=== PATIENT | female | born 1980 | race Caucasian/White ===

== ENCOUNTER → 2016-06-18 | Outpatient (CLI) | payer BC ==
[~2016-06-18] MED LIST: BCPILLS PO; MULT-240 PO; PRENTAB26 PO
[2016-06-18 19:16] LABS: URINE APPEARANCE CLEAR (CLEAR); URINE BILIRUBIN NEG (NEG); URINE COLOR YELLOW; URINE NITRITE NEG (NEG); URINE PH 5.5 (4.5-7.5); URINE SPECIFIC GRAVITY 1.016 (1.000-1.030); UROBILINOGEN NEG (NEG)
[2016-06-18 19:22] LABS: MANUAL MICROSCOPIC REQUIRED? NO; REVIEW REQ? NO
== END | disposition home or self-care (01) ==
LOC: C.LABSPEC 18:02
PROVIDERS: ATTEND Obstetrics & Gynecology
DX: Z34.81 Encounter for supervision of other normal pregnancy, first trimester (principal)

== ENCOUNTER → 2016-06-25 | Outpatient (CLI) | payer BC ==
[2016-06-29 23:54] LABS: CHLAMYDIA TRACH RNA*** NOT DETECTED (NOT DETECTED); GC (NEIS GONORRHOEAE)RNA** NOT DETECTED (NOT DETECTED)
== END | disposition home or self-care (01) ==
LOC: C.LABSPEC 17:41
PROVIDERS: ATTEND Obstetrics & Gynecology
DX: Z34.81 Encounter for supervision of other normal pregnancy, first trimester (principal)

== ENCOUNTER 2016-07-16 16:57 | Emergency (ER) | payer BC ==
[~2016-07-16] VITALS: Ht 170.2 cm; Wt 69.5 kg
[~2016-07-16 16:57] MED LIST changes: -PRENTAB26 PO
[2016-07-16 17:00] VITALS: TEMP 36.8; Ht 170.2 cm; Wt 69.5 kg
--- NOTE | 2016-07-16 17:17 | EMERGENCY ROOM VISIT NOTE ---
History Report prepared by Aletha: Vamsi Ritter Under the Supervision of: Dr. Jose Machado M.D. 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 The patient is 11 weeks . She states that she has been experiencing brown discharge over the past [address] Vogt ([facility] [address]) who told the patient to come in to the ED if this discharge becomes bloody. The patient has a history of a miscarriage 2 years ago. She denies abdominal pain/cramping, or any additional associated symptoms. [id number]. 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 Please see Additional Medical History Sheet. Past Medical & Surgical Medical Problems: (1) Miscarriage Surgical Problems: (1) ACL tear Family History FH: HTN (hypertension) FH: diabetes mellitus FH: heart disease Social History Smoking Status: Never Smoker Alcohol Use: occasionally Drug Use: none Housing Status: lives with significant other Occupation Status: employed Current/Historical Medications Scheduled Multivit/Min/Iron/Fol Ac/Pren ( Vitamin), 1 TAB PO DAILY Allergies Coded Allergies: No Known Allergies (Unverified , 07/16/16) Physical Exam Vital Signs Date Time Temp Pulse Resp B/P Pulse Ox O2 Delivery O2 Flow Rate FiO2 07/16/16 21:35 95 16 134/88 97 Room Air 07/16/16 20:26 91 18 136/76 97 Room Air 07/16/16 18:56 86 16 131/80 98 Room Air 07/16/16 17:44 84 135/79 95 154/93 91 147/112 07/16/16 17:00 36.8 123 18 165/92 94 Room Air Physical Exam GENERAL: Patient awake, alert, oriented x 3. Patient follows commands. Patient does not appear toxic. Patient is adequately hydrated and well- nourished. SKIN: No erythema, pallor, cyanosis or rash HEENT: Normal head, pupils equal, reactive to light and accommodation. LUNGS: Clear to auscultation. No wheezes, no rales, no rhonchi. HEART: No murmurs. No gallops. No rubs ABDOMEN: No masses, no rebound, no hepatomegaly or splenomegaly. PELVIC: Less than 5 cc, dark black blood. Os is closed, Uterine enlarged consistent with 11 weeks . Adnexa nontender. EXTREMITIES: No signs of trauma or infection. NEUROLOGIC: Cranial nerves II-XII within normal limits. No gross motor sensory function deficits. Medical Decision & Procedures ER Provider Diagnostic Interpretation: Ultrasound results are interpretations by the radiologist and per my review. Limited ultrasound <14 WKS SINGLE CLINICAL HISTORY: vag bleeding 11 weeks bleeding TECHNIQUE: Ultrasound COMPARISON STUDY: None FINDINGS: Intrauterine gestational sac at the level of the mid uterine body. heartbeat could not be confirmed. Estimated gestational age is approximate 7 weeks. IMPRESSION: Intrauterine gestational sac with a pole. A heart rate is not confirmed. Follow-up ultrasound is recommended in 7-10 days to confirm viability or as clinically indicated. Electronically signed by: Ambrosio Vega M.D. 07/16/2016 7:41 PM Dictated Date/Time: 07/16/2016 7:39 PM Laboratory Results 07/16/16 17:20 Test 07/16/16 17:20 Red Blood Count 5.03 M/uL (4.2-5.4) Mean Corpuscular Volume 89.1 fL (80-100) Mean Corpuscular Hemoglobin 29.0 pg (25-34) Mean Corpuscular Hemoglobin Concent 32.6 g/dl (32-36) RDW Standard Deviation 38.6 fL (36.4-46.3) RDW Coefficient of Variation 12.1 % (11.5-14.5) Mean Platelet Volume 10.6 fL (7.4-10.4) Human Chorionic Gonadotropin, Quant 4975 mIU/mL Laboratory results as stated above per my review. ED Course 1704: Past medical records reviewed. The patient was evaluated in room A3. A complete history and physical examination was performed. 1757: Performed pelvic exam with female nurse in room. 2109: Discussed the patient's case with Dr. Montero ([facility]). She is agreeable with the discussed treatment plan. 2121: I updated the patient of today's results. I discussed today's findings with the patient. She is tearful, but she verbalized agreement of the treatment plan. She was discharged home. Medical Decision Nurses notes reviewed. Medical history sheet reviewed. Differential diagnosis includes but is not limited to: Intrauterine , threatened ab, inevitable ab, ectopic . The ultrasound reveals no heart tones and size is small for stated dates. Quantitative beta-hCG is less than 5000 and should be much higher. Most likely the patient has an incomplete AB. Patient is Rh+. She is currently not bleeding and vital signs are stable. I discussed care with Dr. Montero. Patient is to follow-up in their office tomorrow at 9:30. Patient was given home care instructions. Consults Time Called: 2099 Consulting Physician: Dr. Montero ([facility]) Returned Call: [phone] Discussed the patient's case with Dr. Montero ([facility]). She is agreeable with the discussed treatment plan. Impression Primary Impression: Incomplete Scribe Attestation The scribe's documentation has been prepared under my direction and personally reviewed by me in its entirety. I confirm that the note above accurately reflects all work, treatment, procedures, and medical decision making performed by me. Departure Information Dispostion Home / Self-Care Referrals Sabrina Vogt MD (PCP) Forms HOME CARE DOCUMENTATION FORM, IMPORTANT VISIT INFORMATION, WORK / SCHOOL INSTRUCTIONS Patient Instructions My [facility] Additional Instructions REST Nothing by mouth after midnight Follow-up with obstetrics tomorrow at 9:30. Return here sooner if you have heavy bleeding or pass any tissue.
[2016-07-16] MEDS ORDERED: PRENTAB26 PO (17:30)
[2016-07-16 17:34] LABS: HEMATOCRIT 44.8 % (37-47); MEAN CELL VOLUME 89.1 fL (80-100); MEAN CORPUSCULAR HGB CONC 32.6 g/dl (32-36); MEAN PLATELET VOLUME 10.6 fL (7.4-10.4); PLATELET COUNT 284 K/uL (130-400); RED BLOOD COUNT 5.03 M/uL (4.2-5.4); WHITE BLOOD COUNT 8.34 K/uL (4.8-10.8)
--- NOTE | 2016-07-16 19:43 | DIAGNOSTIC IMAGING REPORT ---
Limited ultrasound <14 WKS SINGLE CLINICAL HISTORY: vag bleeding 11 weeks bleeding TECHNIQUE: Ultrasound COMPARISON STUDY: None FINDINGS: Intrauterine gestational sac at the level of the mid uterine body. heartbeat could not be confirmed. Estimated gestational age is approximate 7 weeks. IMPRESSION: Intrauterine gestational sac with a pole. A heart rate is not confirmed. Follow-up ultrasound is recommended in 7-10 days to confirm viability or as clinically indicated. Electronically signed by: Ambrosio Vega M.D. 07/16/2016 7:41 PM Dictated Date/Time: 07/16/2016 7:39 PM
[2016-07-16 21:35] VITALS: BP 134/88; PULSE 95; O2SAT 97
[2016-07-17] MEDS ORDERED: SODIUM CHLORIDE 0.9% 1000ML 1,000 ML IV SCH (12:30)
[2016-07-17] MEDS ORDERED: DOXYCYCLINE HYCLATE 100 MG CAP PO STA (12:30)
== END 2016-07-16 21:42 | disposition home or self-care (01) ==
LOC: C.EDB 16:59 → C.EDA 21:42
DX: O03.4 Incomplete spontaneous abortion without complication (principal); Z82.49 Family history of ischemic heart disease and other diseases of the circulatory system; Z83.3 Family history of diabetes mellitus

== ENCOUNTER 2016-07-17 10:04 | Day surgery (SDC) | payer BC ==
[~2016-07-17] VITALS: Ht 170.2 cm; Wt 68.2 kg
[~2016-07-17 10:04] MED LIST changes: -BCPILLS PO; -MULT-240 PO; +PRENTAB26 PO
[2016-07-17 10:18] VITALS: Ht 170.2 cm; Wt 68.2 kg
[2016-07-17] MEDS ORDERED: MEPERIDINE HCL 25 MG/ML CARP IV PRN (10:30)
[2016-07-17] MEDS ORDERED: HYDROmorphone INJ 0.5 MG/0.5 ML SYR IV PRN (10:30)
[2016-07-17] MEDS ORDERED: LABETALOL HCL IV 5 MG/ML 20ML IV PRN (10:30)
[2016-07-17] MEDS ORDERED: ONDANSETRON INJ 2 MG/ML 2 ML VIAL IV PRN ×2 (10:30→14:15)
[2016-07-17] MEDS ORDERED: EpHEDrine SULFATE INJ 50 MG/ML AMP IV PRN (10:30)
[2016-07-17] MEDS ORDERED: ATROPINE SULFATE 0.1 MG/ML 5ML SYR IV PRN (10:30)
[2016-07-17] MEDS ORDERED: FENTANYL CITRATE INJ 50 MCG/1 ML 2 ML VIAL IV PRN (10:30)
[2016-07-17 11:23] VITALS: BP 108/57; PULSE 73; TEMP 36.8; O2SAT 100
[2016-07-17] MEDS ORDERED: MIDAZOLAM HCL 1 MG/ML 2ML VIAL ONE (11:43)
[2016-07-17] MEDS ORDERED: FENTANYL CITRATE INJ 50 MCG/1 ML 2 ML VIAL ONE (11:43)
--- NOTE | 2016-07-17 12:52 | HISTORY & PHYSICAL EXAMINATION ---
DATE OF ADMISSION: 07/17/2016 REASON FOR ADMISSION: D\T\E for missed . HISTORY OF PRESENT ILLNESS: This is a 36-year-old G2, P0-0-1-0 with a that should have been 11 weeks' by dates; however, she was seen in the ER last night and found to have a miscarriage measuring 7 weeks with no heart tones identified. The patient has additionally been undergoing some light bleeding per vagina, which was initially brown and then became bright red yesterday. Currently, she continues to have light brown spotting and she has no cramping or other complaints. REVIEW OF SYSTEMS: Review of systems x10 is negative except as stated above. PAST MEDICAL HISTORY: Prior miscarriage. PAST SURGICAL HISTORY: ACL repair. SOCIAL HISTORY: Single monogamous female. 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 Nonsmoker, nondrug user, and lives at home with her significant other. FAMILY HISTORY: Notable for hypertension, diabetes, and heart disease. No congenital defects and no history of recurrent abortions. MEDICATIONS: vitamin. ALLERGIES: None known. PHYSICAL EXAMINATION: VITAL SIGNS: Within the past 24 hours as measured in the Emergency Department, she has a temperature of 36.8, pulse 95, respirations 16, BP 134/88, and pulse ox 97% on room air. GENERAL: Here in preop, the patient is awake, alert and oriented x3. She is in no acute distress. SKIN: Normal without rash. HEENT: Normal. LUNGS: Clear to auscultation bilaterally. HEART: Shows no murmurs, rubs or gallops. ABDOMEN: Soft and nontender. PELVIC: Deferred at this time; however, per the Emergency Department last night, cervix was closed. Uterus was enlarged. The adnexa were nontender and there was a small amount of dark black blood in the vagina. EXTREMITIES: Normal today. NEUROLOGIC: Grossly within normal limits. DIAGNOSTIC STUDIES: Ultrasound performed in the ER yesterday was reviewed by myself, including the images as well as the report and the images show a 7-week pole with a nonexistent heart tone. Given that the patient was ultrasounded in the office several weeks ago and found to have a viable valencia intrauterine and should have been 11 weeks today, the finding of a 7-week crown rump length with no obvious heart tones is diagnostic of a miscarriage at this time. LABORATORY DATA: Review of labs shows normal platelets of 284 and preop hemoglobin of 14.6. The patient is Rh positive. ASSESSMENT AND PLAN: This is a 36-year-old G2, P0-0-2-0, who presents with a missed at 7 weeks' gestational age size by pole. She has been counseled on her options including expectant management, Cytotec and D\T\E and the patient prefers a D\T\E. She presented for that today and is currently in same-day surgery, where I met her to confirm her consent. Additionally, I discussed with the patient that she has a prior second trimester spontaneous as well as now a first trimester with no successful pregnancies. I offered her Anora chromosome analysis on the material and she is very much agreeable to that. Consent was signed and the patient was informed that I do not know what her out of pocket cost for this may be and she has declined to contact her insurance company prior to the procedure and she wishes to have the testing done regardless of the cost. Additionally, she inquired about testing for blood clotting disorders and other causes of recurrent miscarriage, which I will order while she is here in the hospital and if possible, they may be drawn while she is anesthetized for the procedure or at least before she leaves from the PACU. GREG
[2016-07-17] MEDS ORDERED: PROPOFOL IV EMULSION 10 MG/ML 20 ML VIAL IV ONE (13:24)
[2016-07-17] MEDS ORDERED: DEXAMETHASONE SOD INJ 4 MG/ML VIAL ONE (13:24)
[2016-07-17] MEDS ORDERED: LIDOCAINE HCL 2% 2 ML VIAL (20MG/ML) ONE (13:24)
[2016-07-17] MEDS ORDERED: KETOROLAC TROMETHAMINE 30 MG/ML VIAL ONE (13:24)
[2016-07-17] MEDS ORDERED: ONDANSETRON INJ 2 MG/ML 2 ML VIAL ONE (13:24)
[2016-07-17] MEDS ORDERED: SODIUM CHLORIDE 0.9% 1000ML 1,000 ML IV SCH (14:04)
--- NOTE | 2016-07-17 14:05 | Discharge Instructions ---
Discharge Instructions Date of Service July 17, 2016. Visit Reason for Visit: Missed Discharge Discharge Diagnosis / Problem: missed Discharge Goals Goal(s): Specific goals Activity Recommendations Activity Limitations: per Instructions/Follow-up section Anesthesia . Post Anesthesia Instructions: If you have had General Anesthesia or IV Sedation: * Do not drive today. * Resume driving when surgeon permits. * Do not make important decisions or sign legal documents today. * Call surgeon for: 1. Temperature elevations greater than 101 degrees F. 2. Uncontrollable pain. 3. Excessive bleeding. 4. Persistent nausea and vomiting. 5. Medication intolerance (nausea, vomiting or rash). * For nausea and vomiting use only clear liquids such as: tea, soda, bouillon until nausea subsides, then gradually increase diet as tolerated. * If you have any concerns or questions, call your surgeon's office. If physician is unavailable and it is an emergency, call 911 or go to the nearest emergency room. . Instructions / Follow-Up Instructions / Follow-Up ACTIVITY RECOMMENDATIONS: * Avoid tampons, douching, hot tubs, pools, and intercourse until bleeding has stopped. * May shower as usual. * No strenuous activity for 24-48 hours. After 24-48 hours, you may do anything you feel like doing (driving and sports are okay). SPECIAL CARE INSTRUCTIONS: Special Diet: * Mild nausea may occur in the immediate post-operative period. * Take clear liquids such as tea, cola or bouillon until all nausea has subsided; you may then resume your normal diet. Special Care: * Light bleeding and vaginal spotting can last from a few days to 3-4 weeks. Call your doctor if bleeding becomes heavier than the heaviest part of your period. * Check your temperature twice a day for one week. If it goes above 100.4 degrees Fahrenheit (38.0 Celsius), notify your doctor. * Call your doctor's office for an appointment for 6 weeks after your surgery. FOLLOW-UP VISIT: Call your doctor's office for an appointment for 6 weeks after your surgery. Diet Recommendations Recommended Home Diet: resume previous diet Procedures Procedures Performed: Dilation and Evacuation with Anora(genetic) Testing Pending Studies Studies pending at discharge: no Medical Emergencies . Who to Call and When: Medical Emergencies: If at any time you feel your situation is an emergency, please call 911 immediately. . Non-Emergent Contact Non-Emergency issues call your: Primary Care Provider . . "Provider Documentation" section prepared by Sabrina Vogt. .
[2016-07-17] MEDS ORDERED: OXYCODONE/ACETAMINOPHEN 5-325 TAB PO PRN ×2 (14:15)
[2016-07-17] MEDS ORDERED: PROMETHAZINE HCL INJ 25 MG in SODIUM CHLORIDE 0.9% 50ML 50 ML IV PRN (14:15)
[2016-07-17] MEDS ORDERED: IBUPROFEN 600 MG TAB PO PRN (14:15)
[2016-07-17] MEDS ORDERED: KETOROLAC TROMETHAMINE 30 MG/ML VIAL IV. PRN (14:15)
[2016-07-17 14:20] VITALS: BP 107/55; PULSE 54; TEMP 36.7; O2SAT 100
[2016-07-17] MEDS ORDERED: DOXYCYCLINE HYCLATE 100 MG CAP PO STA (14:30)
--- NOTE | 2016-07-17 14:39 | OPERATIVE REPORT ---
DATE OF OPERATION: 07/17/2016 PREOPERATIVE DIAGNOSIS: Missed . POSTOPERATIVE DIAGNOSIS: Same. PROCEDURE: D\T\E with Anora testing. SURGEON: Dr. Vogt. PROFESSOR OF MARKETING: None. ESTIMATED BLOOD LOSS: 100 mL. FINDINGS: Uterus sounded to 11 cm preop and 8 cm postop. Material consistent with POCs retrieved. SPECIMENS: Products of conception, which were divided into a specimen for our pathology lab and a specimen for Anora genetic testing. COMPLICATIONS: None. DISPOSITION: Stable to the recovery room. DESCRIPTION: Bessie was placed on the table in the dorsal lithotomy position using candy-cane stirrups, prepped and draped in standard sterile fashion and a hard time-out was taken. The bladder was drained of urine using straight catheterization. Specula were then introduced to the vagina and the anterior lip of the cervix was grasped using a single-tooth tenaculum. The cervix was sounded and uterine sound depth was 11 cm. The cervix was then serially dilated to allow passage of an 8 mm rigid curet. The curette was introduced to the fundus and suction hose was then connected and activated. Through several passes, material consistent with products of conception was retrieved. The suction curet was removed and a brief sharp curettage was carried out to feel good cry on all 4 dunn. The suction was then introduced one final time and through one last pass retrieved all the remaining clot and debris. All instruments were then removed from the patient. Of note, the surgical specimen was divided by myself on the back table. Approximately 50% of the specimen was sent in formalin to or pathology lab and the other 50% of the specimen was sent as a fresh product to Anora genetic testing to which the patient had agreed before procedure was undertaken. I attest to the content of the Intraoperative Record and any orders documented therein. Any exceptio ns are noted below.
--- NOTE | 2016-07-17 14:46 | Anesthesiology Progress Note ---
Anesthesia Post Op Note Date & Time July 17, 2016 at 14:45 Vital Signs Pain Intensity: 2 Vital Signs Past 12 Hours Date Time Temp Pulse Resp B/P Pulse Ox O2 Delivery O2 Flow Rate FiO2 07/17/16 14:10 36.6 59 16 102/72 99 Room Air 07/17/16 14:00 73 16 101/69 99 Room Air 07/17/16 13:50 65 16 107/68 100 Mask 10 07/17/16 13:40 67 16 116/62 100 Mask 10 07/17/16 13:34 37 72 16 130/78 99 Mask 10 07/17/16 11:23 36.8 73 16 108/57 100 Room Air Notes Mental Status: alert / awake / arousable, participated in evaluation Pt Amnestic to Procedure: Yes Nausea / Vomiting: adequately controlled Pain: adequately controlled Airway Patency, RR, SpO2: stable & adequate BP & HR: stable & adequate Hydration State: stable & adequate Anesthetic Complications: no major complications apparent
[2016-07-17 14:55] VITALS: BP 116/59; PULSE 64; O2SAT 100
[2016-07-17 15:20] VITALS: BP 116/68; PULSE 68; TEMP 36.7; O2SAT 100
[2016-07-22 17:31] LABS: B2 GLYCOPROTEIN IGA <9 SAU (<=20); B2 GLYCOPROTEIN IGG <9 SGU (<=20); B2 GLYCOPROTEIN IGM <9 SMU (<=20); DRVVT MIX INTERPRETAION Not Indicated; HSV1 AB IGM Negative (Negative); HSV2 AB IGM Negative (Negative); LAC PTT SCREEN 37 sec (<=40); MICROSOMAL AB 689 IU/ML (<9); PHOSPHATIDYLSERINE IGA <20 U/mL (<20); PHOSPHATIDYLSERINE IGG <10 U/mL (<10); PHOSPHATIDYLSERINE IGM <25 U/mL (<25); TOXOPLASMA GONDII IGM Equivocal (Negative)
== END 2016-07-17 15:35 | disposition home or self-care (01) ==
LOC: C.OR 10:04 → C.ACU 15:35
PROVIDERS: ATTEND Obstetrics & Gynecology
DX: O02.1 Missed abortion (principal); Z82.49 Family history of ischemic heart disease and other diseases of the circulatory system; Z83.3 Family history of diabetes mellitus

== ENCOUNTER → 2017-02-23 | Outpatient (CLI) | payer BC ==
--- NOTE | 2017-02-23 11:28 | DIAGNOSTIC IMAGING REPORT ---
HYSTEROSALPINGOGRAM CLINICAL HISTORY: FERTILITY TESTING *DR ARANDA DOING* COMPARISON STUDY: No previous studies for comparison. FINDINGS: 36 seconds of fluoroscopic time was utilized. 5 fluoroscopic spot images were acquired. Both fallopian tubes filled a normal fashion. There is free spillage bilaterally. IMPRESSION: Both fallopian tubes were patent. Electronically signed by: Meng Kinsey M.D. 02/23/2017 11:27 AM Dictated Date/Time: 02/23/2017 11:26 AM
--- NOTE | 2017-02-23 11:32 | OPERATIVE REPORT ---
DATE OF OPERATION: 02/23/2017 DATE OF PROCEDURE: 02/23/2017 The patient is a 36-year-old 2, para 0-0-2-0 white female who presents for hysterosalpingogram as part of her workup for female infertility. After the patient had been identified and her questions answered about the procedure a speculum was placed in the vagina. The cervix was then cleansed with Betadine. The anterior lip of the cervix was then grasped with a single tooth tenaculum. Nice's cannula was inserted into the cervical canal. The dye was then instilled into the uterus without difficulty. The patient tolerated the procedure well. I attest to the content of the Intraoperative Record and any orders documented therein. Any exception s are noted below.
== END | disposition home or self-care (01) ==
LOC: C.RAD 10:45
PROVIDERS: ATTEND Obstetrics & Gynecology
DX: Z31.41 Encounter for fertility testing (principal)

== ENCOUNTER → 2017-06-28 | Outpatient (CLI) | payer OTHER | END | disposition home or self-care (01) | LOC: C.LAB1850 07:53 | PROVIDERS: ATTEND Specialist | DX: Z31.41 Encounter for fertility testing (principal) ==

== ENCOUNTER → 2017-11-01 | Outpatient (CLI) | payer OTHER | END | disposition home or self-care (01) | LOC: C.LAB1850 08:52 | PROVIDERS: ATTEND Specialist | DX: Z31.41 Encounter for fertility testing (principal) ==

== ENCOUNTER 2018-11-18 12:27 | Inpatient (IN) ==
[2018-11-18] MEDS ORDERED: OXYTOCIN 30 UNITS/500 ML BAG IV PRN (12:48)
[2018-11-18] MEDS ORDERED: NIFEdipine 10 MG CAP PO STA (12:48)
[2018-11-18] MEDS ORDERED: NIFEdipine 10 MG CAP ONE (12:54)
--- NOTE | 2018-11-18 13:07 | History & Physical Report ---
Date of Service November 18, 2018 Assessment & Plan (1) Elevated blood pressure affecting in third trimester, antepartum: (2) with 36 completed weeks gestation: Fetus category one. Will acutely treat blood pressure with oral nifedipine, start iv, get labs. Given these levels of blood pressure, has either severe GTHN or severe PET, despite the fact that the pressure were not obtained 4 hours apart. This would mean she had an indication for induction of labor at this gestational age. Other than bp, the patient has no s/s of pet. Will continue to monitor closely. Briefly explained the situation to the patient and her SO and will continue to follow and labs and evaluation return. GBS unknown--collected in the office and sent. History of Present Illness Chief Complaint: elevated blood pressure at 36 weeks Primary Care Provider: NO PCP Patient is a with iup at 36 2/7 weeks who presented for her regular weekly visit at the office today. Her initial blood pressure was noted to by 160/110 with a repeat of 158/[address] Swanson. She had a beautifully reactive nst in the office and was sent over here for evaluation. Patient notes she has overall felt well with no particular issues. She notes no silvestre. She notes some occasional dark spots in her vision with turning of her head. She notes mild sob, but had attributed that to . No cp/n/v. No increased swelling. the up to this point has been uncomplicated. Has controlled hypothyroidism. Blood pressure on arrival was 174/110, with repeat 169/104. Allergies Allergy/AdvReac Type Severity Reaction Status Date / Time sulfadiazine Allergy Verified 11/18/18 11:19 Home Medications Home Medications Medication Instructions Recorded Confirmed Type PNV cmb#95-ferrous fumarate-FA 1 tab PO DAILY 08/16/18 11/18/18 History [] levothyroxine 75 mcg PO DAILY 08/16/18 11/18/18 History Patient History Medical History Miscarriage Knee effusion, right (Acute) Strain of right gastrocnemius muscle (Acute) Meliton's thyroiditis Hypothyroidism Encounter for other specified screening Encounter for supervision of normal first , unspecified trimester Missed UTI (urinary tract infection) Varicella Surgical History H/O oral surgery S/P dilation and curettage S/P knee surgery Family History Grandfather Colorectal cancer Father Cardiac disorder Diabetes Myocardial infarction Brother Hypertension Aunt Breast cancer Mother Osteoporosis Thyroid disease Other No pertinent family history in first degree relatives Social History Preferred Language: Cameroonian marital status: Current Living Situation: Spouse current occupational status: employed Feels Safe at Home: Yes Safety Concerns: Feels Safe At This Time Smoking Status: Never smoker Second Hand Exposure: No ; Hx Alcohol Use: No Hx Substance Use: No Dental Care, Regularly: Yes Physical Activity Frequency: 3-4 Times per Week OB History g1--07/27, sab g2--07/29, blighted ovum g3--12/29, sab hx of IVF with Keyshawn Gomez, unsuccessful x2 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 2 hx of IVF no stds, no abnl paps Review of Systems All systems reviewed & are unremarkable except as noted in HPI & below Physical Exam Constitutional: WD/WN, vitals as above Respiratory: normal respiratory effort, lungs clear to auscultation Cardiovascular: RRR, no murmur, no edema Extremities: no calf tenderness, no pedal edema and no edema DTRs +2/2, no clonus Gastrointestinal (Abdomen): soft, nt, nd , no ruq tenderness noted Psychiatric: A+Ox3, euthymic affect Genitourinary: cx--deferred at this time toco--none efm--125 wtih mod variability, accels present, no decels Results & Data Vital Signs (Past 12 Hours) Vital Signs Pulse BP 11/18/18 12:49 86 169/104 H 11/18/18 12:39 100 H 174/110 H Code Status & VTE Plan VTE Prophylaxis Plan VTE Prophylaxis will be ordered: No
[2018-11-18 13:10] LABS: Hematocrit (blood only) 39.1 % (37-47); Hemoglobin 13.8 g/dL (12.0-16.0); Mean Corpuscular Volume 89.7 fL (80-100); Mean Platelet Volume 12.9 fL (7.4-10.4); Platelet Count 187 K/uL (130-400); RDW Coefficient of Variation 13.1 % (11.5-14.5); RDW Standard Deviation 42.9 fL (36.4-46.3); Red Blood Count 4.36 M/uL (4.2-5.4); White Blood Count 11.12 K/uL (4.8-10.8)
[2018-11-18 13:21] LABS: Mean Corpuscular Hgb Conc 35.3 g/dL (32-36)
[2018-11-18 13:28] LABS: Albumin Level 2.7 gm/dl (3.4-5.0); Calcium 9.9 mg/dl (8.5-10.1); Creatinine Clr Calc Pharmacy 94.6 ml/min; Est GFR (Non-African American) 84.5
[2018-11-18 13:30] LABS: Albumin Globulin Ratio 0.6 (0.9-2); Bilirubin,Total 0.3 mg/dl (0.2-1); Globulin 4.3 gm/dl (2.5-4.0)
[2018-11-18] MEDS ORDERED: LABETALOL HCL IV 5 MG/ML 20ML IV STA ×4 (13:31→18:49)
[2018-11-18] MEDS ORDERED: MAGNESIUM SULFATE 4GM / WTR 100 ML BAG IV ONE ×2 (13:31→13:39)
[2018-11-18] MEDS ORDERED: LABETALOL HCL IV 5 MG/ML 20ML IV ONE (13:31)
[2018-11-18] MEDS ORDERED: MAGNESIUM SULFATE 40GM / WTR 1,000 ML BAG IV ONE (13:34)
--- NOTE | 2018-11-18 13:51 | Communication Note ---
Date of Service: November 18, 2018 Labs are all nl, although supervisor/port director is 0.88. Pressures are still elevated and will be treating with iv labetolol. Continues to be asymptomatic, fetus category one. Discussed that she has severe pet/ghtn with severe feature--bp. Explained the need for induction, need for mag for seizure prophylaxis. risk to the baby from pet outweighed by risk to baby of delivery. Discussed that if baby did not breathe well, may need to be transferred, expressed understanding. will give first dose of steroids. Questions asked and answered. When we get her out of exam room , will check cervix and make plan for induction of labor.
[2018-11-18] MEDS: LACTATED RINGER'S 1,000 ML IV PRN (14:00)
[2018-11-18] MEDS ORDERED: BETAMETH SOD PHOS/ACETATE IA 6 MG/ML IM ONE (14:16)
[2018-11-18] MEDS: MAGNESIUM SULFATE / WTR 40 GM/1,000 ML BAG IV SCH ×2 (15:10→23:10)
[2018-11-18 15:37] LABS: Creatinine Urine Random 28.5 mg/dl; Protein Creatinine Ratio Urine 0.4 (0-0.2); Total Protein Urine Random 11.7 mg/dl (0-11.9)
--- NOTE | 2018-11-18 16:06 | Labor Progress Brief Note ---
Date of Service November 18, 2018 Subjective Continues to be asymptomatic Assessment & Plan (1) Elevated blood pressure affecting in third trimester, antepartum: Discussed options for starting induction as she is in need of cervical ripening. Discussed neal/pit and cytotec. r/b/se discussed and going with the former. Pressures were doing better until I manipulated her. anticipate going back down with rest. Fetus category one. Currently on mag at 2 gm per hour. Will start pcn when starts to labor. Patient originally wanted an unmedicated labor and nonintervential labor experience. Discussed this. Will take pain management as it comes. epidural on demand. start pit 03/15. Patient and her so express understanding of all that is happening. Physical Exam Constitutional: WD/WN, vitals as above Genitourinary: Patient verbally consents to neal and pit cx--/-2 sterile speculum placed. cx visualized. Foely threaded through cervix without difficulty. Balloon filled with 30cc of sterile water. Fixed to her left thigh. Tolerated well. Some slight bleeding toco--desmond efm--125 with mod variability, accels to 150s, no decels Results & Data Vital Signs (Past 12 Hours) Vital Signs Temp Pulse Resp BP Pulse Ox 11/18/18 15:58 88 177/89 H 11/18/18 15:55 99 H 99 11/18/18 15:50 104 H 99 11/18/18 15:42 96 H 99 11/18/18 15:41 92 H 171/98 H 11/18/18 15:37 90 170/103 H 98 11/18/18 15:32 91 H 97 11/18/18 15:31 85 142/87 H 11/18/18 15:27 90 98 11/18/18 15:26 91 H 145/102 H 11/18/18 15:22 90 98 11/18/18 15:20 90 149/95 H 11/18/18 15:18 86 144/95 H 11/18/18 15:17 88 99 11/18/18 15:12 92 H 98 11/18/18 15:11 93 H 150/83 H 11/18/18 15:07 88 99 11/18/18 15:06 88 124/104 H 11/18/18 14:58 89 136/96 11/18/18 14:42 90 158/94 H 11/18/18 14:37 87 162/91 H 11/18/18 14:32 88 159/90 H 11/18/18 14:27 91 H 164/93 H 11/18/18 14:23 92 H 155/89 H 11/18/18 14:17 88 155/90 H 11/18/18 14:12 88 161/88 H 11/18/18 14:07 90 168/96 H 11/18/18 14:02 98 H 171/99 H 11/18/18 13:58 88 161/92 H 11/18/18 13:57 85 164/90 H 11/18/18 13:55 18 11/18/18 13:52 83 175/93 H 11/18/18 13:41 94 H 174/113 H 11/18/18 13:30 93 H 176/111 H 11/18/18 13:17 95 H 166/101 H 11/18/18 13:08 91 H 177/105 H 11/18/18 12:49 37.2 C 86 18 169/104 H 11/18/18 12:46 37.2 C 18 11/18/18 12:39 100 H 174/110 H
[2018-11-18] MEDS ORDERED: PENICILLIN G POTASSIUM 3 MU in DEXTROSE 5% 100 ML IV PRN (16:12)
[2018-11-18] MEDS ORDERED: PENICILLIN G POTASSIUM 6 MU in DEXTROSE 5% 250 ML IV STA (16:12)
[2018-11-18] MEDS: OXYTOCIN 30 UNITS/500 ML BAG IV PRN ×2 (16:40→23:11)
--- NOTE | 2018-11-18 18:58 | Labor Progress Brief Note ---
Date of Service November 18, 2018 Subjective Patient resting comfortably in bed. Notes a very mild silvestre and some cramping Assessment & Plan (1) Elevated blood pressure affecting in third trimester, antepartum: Patient having somewhat labile bp. Has been treated with nifedipine 10mg, labetolo total 30 mg. NO change in her clinical status. Will treat again with labetolol 20 mg iv. Continue mag and current plan. labs at 7. Physical Exam Constitutional: WD/WN, vitals as above Psychiatric: A+Ox3, euthymic affect Genitourinary: toco--q2-4min, pit at 3 efm--category one Results & Data Vital Signs (Past 12 Hours) Vital Signs Temp Pulse Resp BP Pulse Ox 11/18/18 18:52 89 96 11/18/18 18:49 82 94 11/18/18 18:47 82 98 11/18/18 18:43 83 170/90 H 11/18/18 18:42 82 95 11/18/18 18:37 80 98 11/18/18 18:32 81 98 11/18/18 18:27 81 154/80 H 98 11/18/18 18:22 79 98 11/18/18 18:17 85 98 11/18/18 18:15 77 167/93 H 11/18/18 18:12 87 99 11/18/18 18:04 77 99 11/18/18 17:59 84 97 11/18/18 17:57 83 148/86 H 11/18/18 17:54 84 98 11/18/18 17:49 85 97 11/18/18 17:44 79 97 11/18/18 17:42 82 142/86 H 11/18/18 17:39 82 97 11/18/18 17:34 83 97 11/18/18 17:29 83 96 11/18/18 17:28 86 127/87 11/18/18 17:24 92 H 97 11/18/18 17:19 95 H 99 11/18/18 17:14 96 H 97 11/18/18 17:12 96 H 160/96 H 11/18/18 17:09 97 H 100 11/18/18 17:00 88 18 98 11/18/18 16:57 90 158/91 H 11/18/18 16:55 88 98 11/18/18 16:50 87 98 11/18/18 16:45 86 98 11/18/18 16:44 86 162/95 H 11/18/18 16:40 88 98 11/18/18 16:35 91 H 99 11/18/18 16:30 92 H 99 11/18/18 16:27 93 H 157/97 H 11/18/18 16:25 89 98 11/18/18 16:21 93 H 175/104 H 11/18/18 16:20 86 98 11/18/18 16:15 89 99 11/18/18 16:12 95 H 192/93 H 11/18/18 16:10 96 H 98 11/18/18 16:05 100 H 99 11/18/18 16:01 18 11/18/18 16:00 96 H 99 11/18/18 15:58 88 177/89 H 11/18/18 15:55 99 H 99 11/18/18 15:50 104 H 99 11/18/18 15:42 96 H 99 11/18/18 15:41 92 H 171/98 H 11/18/18 15:37 90 170/103 H 98 11/18/18 15:32 91 H 97 11/18/18 15:31 85 142/87 H 11/18/18 15:27 90 98 11/18/18 15:26 91 H 145/102 H 11/18/18 15:22 90 98 11/18/18 15:20 90 149/95 H 11/18/18 15:18 86 144/95 H 11/18/18 15:17 88 99 11/18/18 15:15 36.9 C 18 11/18/18 15:12 92 H 98 11/18/18 15:11 93 H 150/83 H 11/18/18 15:07 88 99 11/18/18 15:06 88 124/104 H 11/18/18 14:58 89 136/96 11/18/18 14:42 90 158/94 H 11/18/18 14:37 87 162/91 H 11/18/18 14:32 88 159/90 H 11/18/18 14:27 91 H 164/93 H 11/18/18 14:23 92 H 155/89 H 11/18/18 14:17 88 155/90 H 11/18/18 14:12 88 161/88 H 11/18/18 14:07 90 168/96 H 11/18/18 14:02 98 H 171/99 H 11/18/18 13:58 88 161/92 H 11/18/18 13:57 85 164/90 H 11/18/18 13:55 18 11/18/18 13:52 83 175/93 H 11/18/18 13:41 94 H 174/113 H 11/18/18 13:30 93 H 176/111 H 11/18/18 13:17 95 H 166/101 H 11/18/18 13:08 91 H 177/105 H 11/18/18 12:49 37.2 C 86 18 169/104 H 11/18/18 12:46 37.2 C 18 11/18/18 12:39 100 H 174/110 H
[2018-11-18 19:31] LABS: Hematocrit (blood only) 39.5 % (37-47); Hemoglobin 14.1 g/dL (12.0-16.0); Mean Corpuscular Hgb Conc 35.7 g/dL (32-36); Mean Corpuscular Volume 89.8 fL (80-100); Mean Platelet Volume 13.3 fL (7.4-10.4); Platelet Count 191 K/uL (130-400); RDW Coefficient of Variation 13.3 % (11.5-14.5); White Blood Count 13.66 K/uL (4.8-10.8)
[2018-11-18 19:49] LABS: Albumin Level 2.9 gm/dl (3.4-5.0); BUN Creatinine Ratio 15.1 (10-20); Calcium 9.5 mg/dl (8.5-10.1); Creatinine Clr Calc Pharmacy 96.8 ml/min; Est GFR (African American) 100.7; Est GFR (Non-African American) 86.9; Potassium 3.9 mmol/L (3.5-5.1)
[2018-11-18 19:52] LABS: Albumin Globulin Ratio 0.7 (0.9-2); Bilirubin,Total 0.2 mg/dl (0.2-1); Globulin 4.3 gm/dl (2.5-4.0); Total Protein 7.2 gm/dl (6.4-8.2)
[2018-11-19] MEDS ORDERED: fentaNYL citrate 100 MCG/2 ML VIAL ONE (00:27)
[2018-11-19] MEDS ORDERED: ePHEDrine sulfate 50 MG/ML AMP ONE (00:27)
[2018-11-19] MEDS ORDERED: BUPIVACAINE 0.25% 30 ML VIAL ONE (00:27)
[2018-11-19] MEDS ORDERED: fentaNYL 2MCG/ML ROPIV 1.25MG/ML 100 ML BAG EPI ONE (00:28)
--- NOTE | 2018-11-19 00:52 | Anesthesiology Consultation ---
Date of Service November 19, 2018 Assessment & Plan Chart Review Chart Review: Acceptable Risk for Surgery, Patient NOT seen in Pre Admission Testing and Acceptable Risk for Labor Epidural Consults Requested none ASA ASA3 Proposed Anesthesia Anesthesia Type: General and Labor Epidural Risk / Benefits Reviewed With: PT / POA / Parent / Guardian, Accepts Plan and Informed Consent Obtained History Height/Weight Height: 5 ft 7 in Weight: 77.111 kg Allergies Allergy/AdvReac Type Severity Reaction Status Date / Time sulfadiazine Allergy Verified 11/18/18 11:19 Medications Home Medications Medication Instructions Recorded Confirmed Last Taken PNV cmb#95-ferrous fumarate-FA 1 tab PO DAILY 08/16/18 11/18/18 11/17/18 [] levothyroxine 75 mcg PO DAILY 08/16/18 11/18/18 11/18/18 Active Medications Generic Name Dose Route Start Last Admin Trade Name Freq PRN Reason Stop Dose Admin Lactated Ringer's 1,000 mls @ 125 mls/hr 11/18/18 12:48 11/18/18 22:31 Lr IV 11/20/18 12:47 75 mls/hr .Q8H PRN Infusion L&D Protocol Protocol Magnesium Sulfate 40 gm in 1,000 mls @ 50 mls/hr 11/18/18 13:45 11/18/18 23:10 Magnesium Sulfate / Wtr IV 12/18/18 13:44 50 mls/hr .Q20H ALLEN Administration Oxytocin 30 units in 500 mls @ 8 mls/hr 11/18/18 16:12 11/18/18 23:30 Pitocin IV 11/20/18 16:11 0.48 units/hr .Q24H PRN 8 mls/hr Labor Induction/Augmentation Titration Protocol 0.48 UNITS/HR NPO Date Last Intake of Fluids: 11/18/18 Time Last Intake of Fluids: 23:00 Date Last Intake of Solids: 11/18/18 Time Last Intake of Solids: 15:00 Past Medical History Medical History Miscarriage Knee effusion, right (Acute) Strain of right gastrocnemius muscle (Acute) Meliton's thyroiditis Hypothyroidism Encounter for other specified screening Encounter for supervision of normal first , unspecified trimester Missed UTI (urinary tract infection) Varicella Exercise / Class Metabolic Activity II 4-5 Yardwork/Stairs/Walk up hill Past Family History Family History Grandfather Colorectal cancer Father Cardiac disorder Diabetes Myocardial infarction Brother Hypertension Aunt Breast cancer Mother Osteoporosis Thyroid disease Other No pertinent family history in first degree relatives Past Surgical History Surgical History H/O oral surgery S/P dilation and curettage S/P knee surgery Past Anesthesia History No Hx of Anesthesia Complications and No Family Hx of Anesthesia Complications History of PONV No Hx of PONV and No Hx of Motion Sickness Social History Smoking Status: Never smoker Hx Alcohol Use: No Hx Substance Use: No Physical Exam Vital Signs Last Vital Signs Temp 36.7 C 11/18/18 23:27 Pulse 67 11/19/18 00:49 Resp 16 11/19/18 00:26 BP 146/86 H 11/19/18 00:43 Pulse Ox 100 11/19/18 00:49 Constitutional + obese ENMT Mouth: no dentition abnormality Thyromental Distance: < 3.5 Finger Breadths Mallampati Class: II Neck normal visual inspection and trachea midline; neck extension not limited Respiratory normal respiratory effort Auscultation: lungs clear to auscultation bilaterally Cardiovascular Rate/Rhythm: regular rate and regular rhythm Heart Sounds: no murmur Musculoskeletal Spine: lumbar spine normal to inspection; normal cervical ROM Neurologic moves all extremities Motor/Sensory: no sensory deficit Psychiatric Orientation: alert and oriented x 3 Testing Laboratory Results 11/18/18 19:05 11/18/18 19:05 Electrocardiogram Date: 08/16/18 Findings: + ST @ (at 111;LAE;low voltage)
[2018-11-19] MEDS ORDERED: NALBUPHINE HCL INJ 10 MG/ML AMP IV PRN (01:17)
[2018-11-19] MEDS ORDERED: PROMETHAZINE HCL 25 MG in SODIUM CHLORIDE 0.9% 50 ML IV PRN (01:17)
[2018-11-19] MEDS ORDERED: ONDANSETRON INJ 2 MG/ML 2 ML VIAL IV PRN (01:17)
[2018-11-19] MEDS ORDERED: ePHEDrine sulfate 50 MG/ML AMP IV PRN (01:17)
[2018-11-19] MEDS ORDERED: DiphenhydrAMINE HCL 50 MG/ML VIAL IV PRN (01:17)
[2018-11-19] MEDS ORDERED: NALOXONE HCL 1 MG in SODIUM CHLORIDE 0.9% 1000ML 1,000 ML IV PRN (01:17)
[2018-11-19] MEDS ORDERED: fentaNYL 2MCG/ML ROPIV 1.25MG/ML 100 ML BAG EPI PRN (01:17)
[2018-11-19] MEDS ORDERED: NALOXONE HCL 0.4 MG/1 ML VIAL/CARP IV PRN (01:17)
[2018-11-19] MEDS: LACTATED RINGER'S 1,000 ML IV PRN (01:48)
--- NOTE | 2018-11-19 02:54 | Delivery Summary ---
Vaginal Delivery Summary Date of Service November 19, 2018 Vaginal Delivery Summary Pre-operative Diagnosis: at 36 2/7 Severe preeclampsia unfavorable cervix Post-operative Diagnosis: same Procedure: antihypertensive treatment Neal bulb placement pitocin induction epidural midline episiotomy with right sulcal laceration with repair cord blood for private collection EBL: 350cc Anesthesia: epidural Procedure: the pateint was admitted to labor and delivery from the office with elevated blood pressures as high as 170/110. Labs were normal. Blood pressures treated with oral nifedipine and IV labetolol. Diagnosed with severe preeclampsia per blood pressure criteria and started on Magnesium prophylaxis. A neal bulb was placed for ripening and pitocin started. She did well and the bulb fell out when she was up to the BR. She then got painful quickly and received an epidural. After the epidural, the baby was having variable decels and was checked and found to be 9cm. Pitocin d/c and oxygen given. She progressed to c/c/+1 station. The patient pushed to deliver a viable female in stacie position over a midline episiotomy. The nose and mouth were bulb suctioned on the perineum and the rest of the was then delivered without difficulty. The baby was vigorous. The nose and mouth were again bulb suctioned and the was placed in the maternal abdomen for drying and attention. Cord was clamped and cut at about one minute of life. Cord blood was obtained for private collection. Placenta delivered spontaneous, intact with a three vessel cord. Cervix/sulci/rectum were intact. A second degree perineal laceration and right sulcal laceration was repaired in the normal standard fashion. Hemostasis obtained with dilute pitocin and fundal massage. Apgars were 8/9. Mother and baby doing well at the end of the delivery Peds was present shortly after delivery. the patient will be maintained on mag and pressures monitored closely.
[2018-11-19] MEDS ORDERED: DIPHTHERIA/TETANUS/PERTUSSIS 0.5 ML SYR/VIAL IM ONE (02:55)
[2018-11-19] MEDS ORDERED: BISACODYL 10 MG SUPP PR PRN (02:55)
[2018-11-19] MEDS ORDERED: BENZOCAINE 20% AER SPR 82.5 GM CAN EXT PRN (02:55)
[2018-11-19] MEDS ORDERED: ACETAMINOPHEN 325 MG TAB PO PRN (02:55)
[2018-11-19] MEDS ORDERED: HYDROCORTISONE ACETATE 25 MG SUPP PR PRN (02:55)
[2018-11-19] MEDS ORDERED: SUPERCREAM 0.870% 15 GM JAR EXT PRN (02:55)
[2018-11-19] MEDS ORDERED: OXYTOCIN 30 UNITS/500 ML BAG IV PRN (02:55)
--- NOTE | 2018-11-19 02:56 | Anesthesia Procedure Note ---
Date of Service November 19, 2018 Anesthesia Post Epidural Note Vital Signs Vital Signs: Temp Pulse Resp BP Pulse Ox 36.7 C 85 18 135/80 88 L 11/19/18 02:08 11/19/18 02:54 11/19/18 02:39 11/19/18 02:39 11/19/18 02:54 Pain Intensity Abdomen: Pain Intensity: 0 Notes Mental Status: alert / awake / arousable Nausea / Vomiting: adequately controlled Pain: adequately controlled Airway Patency, RR, SpO2: stable & adequate BP & HR: stable & adequate Hydration State: stable & adequate Neuraxial Anesthesia: was administered and sensory block is resolving Anesthetic Complications: no major complications apparent Epidural: Removed without complications and With tip intact
[2018-11-19] MEDS: MAGNESIUM SULFATE / WTR 40 GM/1,000 ML BAG IV SCH ×2 (07:06→09:25)
--- NOTE | 2018-11-19 07:42 | Obstetrical Progress Note ---
Date of Service November 19, 2018 Assessment & Plan (1) with 36 completed weeks gestation: (2) Elevated blood pressure affecting in third trimester, antepartum: Continue with Mag prophylaxis. Pressures are doing a little better. Still can be very [id number]. No s/s of worsening disease. Labs pending for 8:30. UOP was really very good. Continue to closely monitor. Subjective Ambulation: limited ambulation Voiding: neal catheter in place Passing Gas:: No Diet Tolerance:: clear liquids Lochia:: Small Feeding Type:: breast feeding Patient feels tired but well this am. no silvestre/vision changes/n/v/ruq pain. Resting comfortably. Physical Exam Constitutional WD/WN, vitals as above Gastrointestinal (Abdomen) soft, nt, nd, no ruq pain Neurologic ext--+1/2 dtrs, no clonus Psychiatric A+Ox3, euthymic affect Results & Data Vital Signs (Past 12 Hours) Vital Signs Temp Pulse Resp BP Pulse Ox 11/19/18 07:34 96 H 99 11/19/18 07:29 85 98 11/19/18 07:24 85 98 11/19/18 07:19 83 99 11/19/18 07:14 88 99 11/19/18 07:13 89 173/90 H 11/19/18 07:09 92 H 98 11/19/18 07:04 101 H 99 11/19/18 06:59 91 H 96 11/19/18 06:54 82 94 11/19/18 06:53 84 94 11/19/18 06:49 83 94 11/19/18 06:48 83 94 11/19/18 06:44 86 95 11/19/18 06:42 83 94 11/19/18 06:39 79 95 11/19/18 06:34 84 96 11/19/18 06:29 82 95 11/19/18 06:24 85 96 11/19/18 06:19 91 H 97 11/19/18 06:17 16 11/19/18 06:14 92 H 96 11/19/18 06:13 91 H 94 11/19/18 06:12 86 142/86 H 11/19/18 06:09 109 H 98 11/19/18 06:07 91 H 94 11/19/18 06:04 85 95 11/19/18 06:02 86 94 11/19/18 05:59 85 95 11/19/18 05:57 84 94 11/19/18 05:54 86 95 11/19/18 05:49 83 96 11/19/18 05:44 83 97 11/19/18 05:43 95 H 178/90 H 11/19/18 05:39 87 97 11/19/18 05:34 84 96 11/19/18 05:29 87 97 11/19/18 05:24 87 97 11/19/18 05:19 84 97 11/19/18 05:15 90 165/77 H 11/19/18 05:14 90 166/80 H 97 11/19/18 05:12 88 176/89 H 11/19/18 05:09 100 H 98 11/19/18 05:07 96 H 92 11/19/18 05:04 88 98 11/19/18 04:59 87 98 11/19/18 04:54 88 98 11/19/18 04:49 91 H 98 11/19/18 04:44 96 H 98 11/19/18 04:41 87 145/84 H 11/19/18 04:39 90 171/90 H 98 11/19/18 04:34 89 98 11/19/18 04:29 92 H 97 11/19/18 04:24 87 97 11/19/18 04:19 91 H 96 11/19/18 04:14 87 95 11/19/18 04:09 85 16 149/81 H 98 11/19/18 04:04 83 98 11/19/18 03:59 96 H 98 11/19/18 03:54 87 137/76 98 11/19/18 03:49 89 99 11/19/18 03:45 81 93 11/19/18 03:44 80 94 11/19/18 03:39 76 16 136/77 99 11/19/18 03:34 78 99 11/19/18 03:29 76 99 11/19/18 03:24 81 125/76 99 11/19/18 03:19 80 99 11/19/18 03:18 75 131/68 11/19/18 03:14 76 100 11/19/18 03:09 79 16 100 11/19/18 03:04 83 99 11/19/18 03:00 88 18 140/74 11/19/18 02:59 85 99 11/19/18 02:54 85 88 L 11/19/18 02:53 78 93 11/19/18 02:49 77 99 11/19/18 02:44 76 100 11/19/18 02:39 78 18 135/80 99 11/19/18 02:34 81 100 11/19/18 02:29 82 100 11/19/18 02:24 83 18 138/71 100 11/19/18 02:19 84 100 11/19/18 02:14 84 99 11/19/18 02:09 80 100 11/19/18 02:08 36.7 C 88 18 136/60 11/19/18 02:07 86 86 L 11/19/18 02:04 85 99 11/19/18 01:59 89 98 11/19/18 01:54 91 H 98 11/19/18 01:50 94 H 93 11/19/18 01:49 94 H 96 11/19/18 01:44 88 100 11/19/18 01:39 92 H 100 11/19/18 01:36 88 126/64 11/19/18 01:34 99 H 141/64 H 100 11/19/18 01:32 101 H 137/71 11/19/18 01:30 93 H 128/83 11/19/18 01:29 90 100 11/19/18 01:28 90 127/67 11/19/18 01:26 86 134/61 11/19/18 01:24 82 140/67 100 11/19/18 01:22 88 129/58 L 11/19/18 01:20 83 126/58 L 11/19/18 01:19 88 99 11/19/18 01:18 108 H 133/64 11/19/18 01:16 83 140/64 11/19/18 01:15 18 11/19/18 01:14 85 129/92 100 11/19/18 01:12 83 134/76 11/19/18 01:10 68 143/78 H 11/19/18 01:09 70 100 11/19/18 01:08 69 161/82 H 11/19/18 01:06 56 L 162/98 H 11/19/18 01:04 58 L 99 11/19/18 00:59 72 100 11/19/18 00:57 63 18 147/92 H 11/19/18 00:54 70 98 11/19/18 00:52 64 89 L 11/19/18 00:49 67 100 11/19/18 00:44 61 97 11/19/18 00:43 67 146/86 H 11/19/18 00:39 61 98 11/19/18 00:34 63 99 11/19/18 00:29 68 99 11/19/18 00:28 71 167/86 H 11/19/18 00:26 16 11/19/18 00:24 65 100 11/19/18 00:19 65 100 11/19/18 00:12 74 163/87 H 11/19/18 00:10 79 98 11/19/18 00:05 77 98 11/19/18 00:00 79 98 11/18/18 23:57 79 16 149/83 H 11/18/18 23:55 82 98 11/18/18 23:50 83 97 11/18/18 23:45 81 98 11/18/18 23:43 82 151/75 H 11/18/18 23:40 84 98 11/18/18 23:35 84 98 11/18/18 23:33 80 166/84 H 11/18/18 23:30 85 97 11/18/18 23:27 36.7 C 85 16 165/84 H 11/18/18 23:25 83 98 11/18/18 23:23 85 171/85 H 11/18/18 23:21 90 183/88 H 11/18/18 23:20 89 99 11/18/18 23:08 89 97 11/18/18 23:03 84 97 11/18/18 22:58 87 97 11/18/18 22:57 84 138/76 11/18/18 22:53 84 97 11/18/18 22:48 87 96 11/18/18 22:43 82 96 11/18/18 22:42 80 138/72 11/18/18 22:38 82 97 11/18/18 22:33 86 97 11/18/18 22:28 82 97 11/18/18 22:27 85 134/70 11/18/18 22:23 90 96 11/18/18 22:18 85 97 11/18/18 22:13 79 98 11/18/18 22:12 81 154/77 H 11/18/18 22:08 85 98 11/18/18 22:00 82 97 11/18/18 21:57 84 153/79 H 11/18/18 21:55 84 96 11/18/18 21:50 85 97 11/18/18 21:45 88 98 11/18/18 21:42 81 141/74 H 11/18/18 21:40 83 97 11/18/18 21:35 85 97 11/18/18 21:30 80 97 11/18/18 21:27 84 144/88 H 11/18/18 21:25 87 97 11/18/18 21:20 87 97 11/18/18 21:15 83 98 11/18/18 21:13 81 143/83 H 11/18/18 21:10 82 98 11/18/18 21:05 85 96 11/18/18 21:00 80 16 97 11/18/18 20:59 87 176/89 H 11/18/18 20:55 85 98 11/18/18 20:46 86 98 11/18/18 20:42 88 153/82 H 11/18/18 20:41 84 97 11/18/18 20:36 87 97 11/18/18 20:31 81 98 11/18/18 20:28 80 160/82 H 11/18/18 20:26 83 98 11/18/18 20:21 78 96 11/18/18 20:16 82 97 11/18/18 20:12 96 H 158/77 H 11/18/18 20:11 92 H 97 11/18/18 20:06 84 97 11/18/18 20:01 82 97 11/18/18 19:57 81 162/82 H 11/18/18 19:56 84 97 11/18/18 19:51 78 97 11/18/18 19:48 78 148/79 H 11/18/18 19:46 84 98 11/18/18 19:41 88 100
[2018-11-19] MEDS: DOCUSATE SODIUM 100 MG CAP PO SCH (08:35)
[2018-11-19] MEDS: LEVOTHYROXINE SODIUM 75 MCG TABLET PO SCH (08:35)
[2018-11-19] MEDS: PRENATAL VITAMIN 1 TAB PO SCH (08:35)
[2018-11-19 09:42] LABS: Albumin Level 2.7 gm/dl (3.4-5.0); BUN Creatinine Ratio 10.7 (10-20); Calcium 9.1 mg/dl (8.5-10.1); Creatinine Clr Calc Pharmacy 84.9 ml/min; Est GFR (Non-African American) 74.2; Potassium 4.1 mmol/L (3.5-5.1)
[2018-11-19 09:44] LABS: Albumin Globulin Ratio 0.7 (0.9-2); Bilirubin,Total 0.3 mg/dl (0.2-1); Globulin 4.1 gm/dl (2.5-4.0); Total Protein 6.8 gm/dl (6.4-8.2)
[2018-11-19 09:48] LABS: Hematocrit (blood only) 37.1 % (37-47); Mean Corpuscular Volume 89.6 fL (80-100); Mean Platelet Volume 13.5 fL (7.4-10.4); Nucleated RBC # (auto) 0.02 K/uL (0-0); Nucleated RBC % (auto) 0.1 %; Platelet Count 221 K/uL (130-400); RDW Coefficient of Variation 13.5 % (11.5-14.5); RDW Standard Deviation 43.7 fL (36.4-46.3); Red Blood Count 4.14 M/uL (4.2-5.4); White Blood Count 21.99 K/uL (4.8-10.8)
[2018-11-19] MEDS: IBUPROFEN 600 MG TAB PO PRN ×2 (11:39→17:21)
[2018-11-19] MEDS ORDERED: LABETALOL HCL IV 5 MG/ML 20ML IV STA (12:42)
--- NOTE | 2018-11-19 12:45 | Obstetrical Progress Note ---
Date of Service November 19, 2018 Subjective Sitting up in room, feeling well. Patient's labs look relatively normal. Platelets and LFTs normal, creatinine is slightly elevated at 0.98 (up from 0.88). Mag level 6.3. BPs elevated - most recently 170/96. Will plan to repeat labs at 2pm, will give 1 dose IV labetalol 20mg. Continue to monitor BP closely. Excellent diuresis, and is tolerating PO liquids well. Will decrease IV fluids to 50ml/hr. Results & Data Vital Signs (Past 12 Hours) Vital Signs Temp Pulse Resp BP Pulse Ox 11/19/18 12:39 86 98 11/19/18 12:34 90 97 11/19/18 12:30 93 H 170/96 H 11/19/18 12:29 93 H 98 11/19/18 12:24 89 97 11/19/18 12:19 93 H 98 11/19/18 12:14 95 H 164/100 H 96 11/19/18 12:11 109 H 91 11/19/18 12:09 99 H 96 11/19/18 12:04 99 H 97 11/19/18 11:59 92 H 98 11/19/18 11:54 92 H 98 11/19/18 11:49 92 H 97 11/19/18 11:48 105 H 91 11/19/18 11:47 37.0 C 20 11/19/18 11:44 101 H 98 11/19/18 11:39 97 H 97 11/19/18 11:34 87 98 11/19/18 11:29 98 H 96 11/19/18 11:24 97 H 95 11/19/18 11:19 94 H 96 11/19/18 11:14 97 H 97 11/19/18 11:13 93 H 154/81 H 11/19/18 11:09 99 H 97 11/19/18 11:04 95 H 97 11/19/18 10:59 96 H 97 11/19/18 10:54 92 H 98 11/19/18 10:51 109 H 92 11/19/18 10:49 100 H 98 11/19/18 10:44 101 H 99 11/19/18 10:39 114 H 98 11/19/18 10:34 101 H 96 11/19/18 10:29 106 H 97 11/19/18 10:24 110 H 96 11/19/18 10:19 118 H 99 11/19/18 10:15 20 11/19/18 10:14 98 H 96 11/19/18 10:13 99 H 142/76 H 93 11/19/18 10:09 99 H 96 11/19/18 10:04 100 H 97 11/19/18 09:59 93 H 96 11/19/18 09:54 100 H 97 11/19/18 09:49 95 H 97 11/19/18 09:44 98 H 97 11/19/18 09:39 94 H 96 11/19/18 09:34 99 H 97 11/19/18 09:29 95 H 99 11/19/18 09:24 94 H 93 11/19/18 09:21 91 H 136/85 11/19/18 09:19 85 97 11/19/18 09:15 20 11/19/18 09:14 92 H 98 11/19/18 09:09 93 H 98 11/19/18 09:04 94 H 96 11/19/18 08:59 92 H 97 11/19/18 08:54 95 H 97 11/19/18 08:49 96 H 98 11/19/18 08:44 97 H 98 11/19/18 08:39 103 H 97 11/19/18 08:34 108 H 99 11/19/18 08:29 96 H 97 11/19/18 08:24 96 H 99 11/19/18 08:19 94 H 98 11/19/18 08:15 20 11/19/18 08:14 96 H 98 11/19/18 08:13 90 157/90 H 11/19/18 08:09 89 98 11/19/18 08:04 98 H 99 11/19/18 07:59 88 99 11/19/18 07:54 84 98 11/19/18 07:49 85 98 11/19/18 07:44 88 98 11/19/18 07:40 36.8 C 20 11/19/18 07:39 86 99 11/19/18 07:34 96 H 99 11/19/18 07:29 85 98 11/19/18 07:24 85 98 11/19/18 07:19 83 99 11/19/18 07:14 88 99 11/19/18 07:13 89 173/90 H 11/19/18 07:09 92 H 98 11/19/18 07:04 101 H 99 11/19/18 06:59 91 H 96 11/19/18 06:54 82 94 11/19/18 06:53 84 94 11/19/18 06:49 83 94 11/19/18 06:48 83 94 11/19/18 06:44 86 95 11/19/18 06:42 83 94 11/19/18 06:39 79 95 11/19/18 06:34 84 96 11/19/18 06:29 82 95 11/19/18 06:24 85 96 11/19/18 06:19 91 H 97 11/19/18 06:17 16 11/19/18 06:14 92 H 96 11/19/18 06:13 91 H 94 11/19/18 06:12 86 142/86 H 11/19/18 06:09 109 H 98 11/19/18 06:07 91 H 94 11/19/18 06:04 85 95 11/19/18 06:02 86 94 11/19/18 05:59 85 95 11/19/18 05:57 84 94 11/19/18 05:54 86 95 11/19/18 05:49 83 96 11/19/18 05:44 83 97 11/19/18 05:43 95 H 178/90 H 11/19/18 05:39 87 97 11/19/18 05:34 84 96 11/19/18 05:29 87 97 11/19/18 05:24 87 97 11/19/18 05:19 84 97 11/19/18 05:15 90 165/77 H 11/19/18 05:14 90 166/80 H 97 11/19/18 05:12 88 176/89 H 11/19/18 05:09 100 H 98 11/19/18 05:07 96 H 92 11/19/18 05:04 88 98 11/19/18 04:59 87 98 11/19/18 04:54 88 98 11/19/18 04:49 91 H 98 11/19/18 04:44 96 H 98 11/19/18 04:41 87 145/84 H 11/19/18 04:39 90 171/90 H 98 11/19/18 04:34 89 98 11/19/18 04:29 92 H 97 11/19/18 04:24 87 97 11/19/18 04:19 91 H 96 11/19/18 04:14 87 95 11/19/18 04:09 85 16 149/81 H 98 11/19/18 04:04 83 98 11/19/18 03:59 96 H 98 11/19/18 03:54 87 137/76 98 11/19/18 03:49 89 99 11/19/18 03:45 81 93 11/19/18 03:44 80 94 11/19/18 03:39 76 16 136/77 99 11/19/18 03:34 78 99 11/19/18 03:29 76 99 11/19/18 03:24 81 125/76 99 11/19/18 03:19 80 99 11/19/18 03:18 75 131/68 11/19/18 03:14 76 100 11/19/18 03:09 79 16 100 11/19/18 03:04 83 99 11/19/18 03:00 88 18 140/74 11/19/18 02:59 85 99 11/19/18 02:54 85 88 L 11/19/18 02:53 78 93 11/19/18 02:49 77 99 11/19/18 02:44 76 100 11/19/18 02:39 78 18 135/80 99 11/19/18 02:34 81 100 11/19/18 02:29 82 100 11/19/18 02:24 83 18 138/71 100 11/19/18 02:19 84 100 11/19/18 02:14 84 99 11/19/18 02:09 80 100 11/19/18 02:08 36.7 C 88 18 136/60 11/19/18 02:07 86 86 L 11/19/18 02:04 85 99 11/19/18 01:59 89 98 11/19/18 01:54 91 H 98 11/19/18 01:50 94 H 93 11/19/18 01:49 94 H 96 11/19/18 01:44 88 100 11/19/18 01:39 92 H 100 11/19/18 01:36 88 126/64 11/19/18 01:34 99 H 141/64 H 100 11/19/18 01:32 101 H 137/71 11/19/18 01:30 93 H 128/83 11/19/18 01:29 90 100 11/19/18 01:28 90 127/67 11/19/18 01:26 86 134/61 11/19/18 01:24 82 140/67 100 11/19/18 01:22 88 129/58 L 11/19/18 01:20 83 126/58 L 11/19/18 01:19 88 99 11/19/18 01:18 108 H 133/64 11/19/18 01:16 83 140/64 11/19/18 01:15 18 11/19/18 01:14 85 129/92 100 11/19/18 01:12 83 134/76 11/19/18 01:10 68 143/78 H 11/19/18 01:09 70 100 11/19/18 01:08 69 161/82 H 11/19/18 01:06 56 L 162/98 H 11/19/18 01:04 58 L 99 11/19/18 00:59 72 100 11/19/18 00:57 63 18 147/92 H 11/19/18 00:54 70 98 11/19/18 00:52 64 89 L 11/19/18 00:49 67 100 PG Care Time/CCT Total # of Minutes Spent Total Time Spent with Patient: Total time spent is greater than 50% in coordination of care (as documented) at patient's floor/unit and/or counseling patient:
[2018-11-19] MEDS: LACTATED RINGER'S 1,000 ML IV SCH ×2 (13:16→16:54)
[2018-11-19 14:01] LABS: Hematocrit (blood only) 32.6 % (37-47); Hemoglobin 11.1 g/dL (12.0-16.0); Mean Corpuscular Volume 90.1 fL (80-100); Mean Platelet Volume 12.9 fL (7.4-10.4); Platelet Count 210 K/uL (130-400); RDW Coefficient of Variation 13.6 % (11.5-14.5); RDW Standard Deviation 44.3 fL (36.4-46.3); Red Blood Count 3.62 M/uL (4.2-5.4); White Blood Count 19.13 K/uL (4.8-10.8)
[2018-11-19 14:29] LABS: Albumin Globulin Ratio 0.7 (0.9-2); Albumin Level 2.4 gm/dl (3.4-5.0); Bilirubin,Total 0.3 mg/dl (0.2-1); Calcium 8.3 mg/dl (8.5-10.1); Creatinine Clr Calc Pharmacy 105.4 ml/min; Est GFR (African American) 111.6; Est GFR (Non-African American) 96.3; Globulin 3.6 gm/dl (2.5-4.0); Magnesium Therapeutic L&D Only 6.4 mg/dL (4.0-8.0); Potassium 4.1 mmol/L (3.5-5.1)
[2018-11-20] MEDS ORDERED: Nursing to Pharmacy Communication ONE (02:04)
[2018-11-20] MEDS: IBUPROFEN 600 MG TAB PO PRN ×3 (06:24→21:18)
[2018-11-20] MEDS: LEVOTHYROXINE SODIUM 75 MCG TABLET PO SCH (06:49)
--- NOTE | 2018-11-20 08:23 | Obstetrical Progress Note ---
Date of Service November 20, 2018 Assessment & Plan (1) Preeclampsia, severe: PPD#1 doing well. Is s/p 24h magnesium after delivery. Will plan to continue to watch BPs today. Subjective Ambulation: ambulating normally Voiding: no voiding problems Diet Tolerance:: regular diet Lochia:: Moderate Feeding Type:: breast feeding Feeling tired but well today. Review of Systems All systems reviewed & are unremarkable except as noted in HPI & below Physical Exam Constitutional WD/WN, vitals as above no acute distress Respiratory normal respiratory effort Cardiovascular Rate/Rhythm: regular rate and regular rhythm Gastrointestinal (Abdomen) Inspection/Auscultation: abdomen normal to inspection; abdomen not distended Percussion/Palpation: abdomen soft Genitourinary OB Exam Abdomen: + fundal height Fundus: + firm; not tender Results & Data Vital Signs (Past 12 Hours) Vital Signs Temp Pulse Pulse Resp BP BP Pulse Ox 11/20/18 03:00 37.2 C 78 18 151/99 H 98 11/20/18 02:08 66 119/66 95 11/20/18 02:05 36.7 C 18 11/20/18 02:03 67 11/20/18 01:58 67 95 11/20/18 01:53 71 96 11/20/18 01:48 70 95 11/20/18 01:43 69 95 11/20/18 01:38 69 95 11/20/18 01:35 68 119/59 L 11/20/18 01:33 71 95 11/20/18 01:28 68 95 11/20/18 01:23 67 96 11/20/18 01:18 70 95 11/20/18 01:15 16 11/20/18 01:13 71 95 11/20/18 01:08 71 95 11/20/18 01:03 71 94 11/20/18 00:58 72 94 11/20/18 00:53 73 94 11/20/18 00:48 69 95 11/20/18 00:43 73 94 11/20/18 00:38 76 94 11/20/18 00:35 77 128/67 11/20/18 00:33 74 94 11/20/18 00:28 68 94 11/20/18 00:23 73 94 11/20/18 00:19 16 11/20/18 00:18 74 94 11/20/18 00:13 73 94 09/08/19 00:08 75 93 11/20/18 00:03 71 93 11/19/18 23:58 75 94 11/19/18 23:53 71 94 11/19/18 23:48 73 94 11/19/18 23:43 73 95 11/19/18 23:38 73 94 11/19/18 23:35 73 134/73 11/19/18 23:33 80 96 11/19/18 23:28 78 95 11/19/18 23:23 80 96 11/19/18 23:18 89 96 11/19/18 23:15 36.5 C 16 11/19/18 23:14 80 143/84 H 11/19/18 23:13 81 90 11/19/18 23:08 77 93 11/19/18 23:03 76 93 11/19/18 22:58 76 93 11/19/18 22:53 75 93 11/19/18 22:48 81 93 11/19/18 22:43 79 94 11/19/18 22:42 77 94 11/19/18 22:38 83 94 11/19/18 22:35 84 144/92 H 11/19/18 22:33 86 96 11/19/18 22:30 18 11/19/18 22:28 85 95 11/19/18 22:27 91 H 94 11/19/18 22:23 87 93 11/19/18 22:21 90 94 11/19/18 22:18 85 95 11/19/18 22:14 90 94 11/19/18 22:13 90 95 11/19/18 22:09 87 94 11/19/18 22:08 92 H 94 11/19/18 22:04 92 H 93 11/19/18 22:03 90 97 11/19/18 21:58 92 H 93 11/19/18 21:53 97 H 97 11/19/18 21:48 100 H 97 11/19/18 21:43 92 H 96 11/19/18 21:38 88 96 11/19/18 21:35 90 120/57 L 93 11/19/18 21:33 89 96 11/19/18 21:28 88 96 11/19/18 21:23 87 96 11/19/18 21:18 88 97 11/19/18 21:13 87 97 11/19/18 21:08 98 H 95 11/19/18 21:06 94 H 94 11/19/18 21:03 94 H 95 11/19/18 20:58 86 95 11/19/18 20:53 88 95 11/19/18 20:50 91 H 94 11/19/18 20:48 104 H 98 11/19/18 20:43 87 96 11/19/18 20:38 86 96 11/19/18 20:35 87 119/56 L 92 11/19/18 20:33 85 95 11/19/18 20:30 18 11/19/18 20:28 95 H 95 11/19/18 20:25 88 94 11/19/18 20:23 90 95
[2018-11-20] MEDS: DOCUSATE SODIUM 100 MG CAP PO SCH ×2 (08:28→21:17)
[2018-11-20] MEDS: PRENATAL VITAMIN 1 TAB PO SCH (08:28)
[2018-11-20] MEDS: LABETALOL HCL 100 MG TAB PO SCH ×2 (12:24→21:17)
[2018-11-20] MEDS ORDERED: BISACODYL 5 MG TABEC PO SCH (20:00)
[2018-11-21] MEDS: LEVOTHYROXINE SODIUM 75 MCG TABLET PO SCH (06:03)
--- NOTE | 2018-11-21 06:29 | Discharge Summary ---
Date of Service November 21, 2018 Admission HPI Per Admitting Provider Patient is a with iup at 36 2/7 weeks who presented for her regular weekly visit at the office today. Her initial blood pressure was noted to by 160/110 with a repeat of 158/[address] Swanson. She had a beautifully reactive nst in the office and was sent over here for evaluation. Patient notes she has overall felt well with no particular issues. She notes no silvestre. She notes some occasional dark spots in her vision with turning of her head. She notes mild sob, but had attributed that to . No cp/n/v. No increased swelling. the up to this point has been uncomplicated. Has controlled hypothyroidism. Blood pressure on arrival was 174/110, with repeat 169/104. Admission Exam (Per Admitting) Constitutional WD/WN, vitals as above + obese; no acute distress ENMT Nose: no facial edema Mouth: no dentition abnormality Mallampati Class: II Neck normal visual inspection and trachea midline; neck extension not limited Respiratory normal respiratory effort, lungs clear to auscultation normal respiratory effort Auscultation: lungs clear to auscultation bilaterally Cardiovascular RRR, no murmur, no edema Rate/Rhythm: regular rate and regular rhythm Heart Sounds: no murmur Extremities: no calf tenderness, no pedal edema and no edema Gastrointestinal (Abdomen) Inspection/Auscultation: abdomen normal to inspection; abdomen not distended Percussion/Palpation: abdomen soft Musculoskeletal Spine: lumbar spine normal to inspection; normal cervical ROM Neurologic moves all extremities Motor/Sensory: no sensory deficit Psychiatric A+Ox3, euthymic affect Orientation: alert and oriented x 3 Genitourinary OB Exam Abdomen: + fundal height Discharge Data Consultations 11/18/18 12:48 Consult Anesthesiology Stat Hospital Course (1) Preeclampsia, severe: PPD#2 doing well. Is s/p 48h magnesium after delivery. Blood pressures continue to be mildly elevated; will continue Labetalol 100mg BID after discharge. Will have follow-up in with PROTECTIVE SERVICES OFFICER for blood pressure monitoring Hypothyroidism: will need to follow-up with Endocrine for management of her Synthroid Supervising Physician Co-Signing Physician Notes Resident Physician Supervision Note: I interviewed and examined the patient. Discussed with Dr. Zaldivar and agree with findings and plan as documented in the note. Any exceptions or clarifications are listed here: PPD#2 doing well. Rx Labetalol 100mg BID sent to pharmacy. Followup in office in 1 week for BP check. Reviewed discharge instructions and s/s to watch for preeclampsia. Documented By: Elma Swanson, Resident Activity Tracking Resident Involvement: Resident Care Provided Care Provided: Adult Hospital Medicine
--- NOTE | 2018-11-21 07:48 | Obstetrical Progress Note ---
Date of Service <Chidi Zaldivar MD - Last Filed: 11/21/18 07:52> November 21, 2018 Assessment & Plan <Chidi Zaldivar MD - Last Filed: 11/21/18 07:52> (1) Preeclampsia, severe: PPD#2 doing well. Is s/p 48h magnesium after delivery. Blood pressures continue to be mildly elevated; will continue Labetalol 100mg BID after discharge. Will have follow-up in with ACTIVE DIRECTORY SPECIALIST for blood pressure monitoring Hypothyroidism: will need to follow-up with Endocrine for management of her Synthroid Subjective <Chidi Zaldivar MD - Last Filed: 11/21/18 07:52> Feeling well today, having some continued abdominal cramping, able to void without difficulties; continues to have some spotting that has lessened overnight Review of Systems Constitutional: denies fever; chills; sweats; headache Respiratory: denies shortness of breath, difficulty breathing Cardiac: denies chest pain; palpitations; chest pressure Breast: denies breast pain : denies dysuria Physical Exam <Chidi Zaldivar MD - Last Filed: 11/21/18 07:52> General: alert; oriented; no acute distress Cardiac: RRR; no m/g/r Respiratory: CTAB a/p; no wheezes/rales/rhonchi; no increased work of breathing; symmetrical chest rise; no respiratory distress Abdomen: soft; NT/ND; bowel sounds positive Uterus: uterine fundus firm; palpable 6cm below umbilicus Lower extrem: no lower extremity edema or swelling; no deep calf pain; Marc's sign negative b/l Results & Data <Chidi Zaldivar MD - Last Filed: 11/21/18 07:52> Vital Signs (Past 12 Hours) Vital Signs Temp Pulse Pulse Resp BP BP Pulse Ox 11/21/18 06:00 62 136/79 11/21/18 05:30 55 L 131/79 11/21/18 05:00 55 L 148/84 H 11/21/18 04:21 52 L 172/84 H 11/21/18 04:20 53 L 173/77 H 11/20/18 23:15 37.2 C 57 L 18 134/80 95 11/20/18 22:10 62 143/82 H 11/20/18 20:25 37.3 C 71 20 154/84 H 97 Medications Administered Current Inpatient Medications Acetaminophen (Tylenol) 650 mg PO Q6H PRN PRN Reason: Pain/MILTON/Fever Stop: 12/19/18 02:54 Benzocaine (Dermoplast Pain Relieving [place]) 1 appln EXT PRN PRN PRN Reason: Perineal Discomfort Stop: 12/19/18 02:54 Last Admin: 11/20/18 08:46 Dose: 1 appln Documented by: Bisacodyl (Dulcolax) 10 mg GA DAILY PRN PRN Reason: No BM on 2nd post- day Stop: 12/19/18 02:54 Cocaine HCl (Supercream 0.870%) 1 gm EXT BID PRN PRN Reason: Hemorrhoidal Inflammation Stop: 12/03/18 02:54 Docusate Sodium (Colace) 100 mg PO DAILY@, [facility] Stop: 12/19/18 07:59 Last Admin: 11/20/18 21:17 Dose: 100 mg Documented by: Hydrocortisone (Anusol Hc) 25 mg GA BID PRN PRN Reason: Hemorrhoidal Inflammation Stop: 12/19/18 02:54 Lactated Ringer's (Lr) 1,000 mls @ 50 mls/hr IV .Q20H [facility] Stop: 12/19/18 02:59 Last Infusion: 11/20/18 02:08 Dose: 0 mls/hr Documented by: Oxytocin (Pitocin) 30 units in 500 mls @ 333.333 mls/hr IV .Q1H30M PRN; Protocol PRN Reason: Bleeding Control Stop: 12/19/18 02:54 Ibuprofen (Motrin) 600 mg PO Q4H PRN PRN Reason: Pain/MILTON/Cramping/Fever Stop: 12/19/18 02:54 Last Admin: 11/20/18 21:18 Dose: 600 mg Documented by: Labetalol HCl (Normodyne) 100 mg PO BID [facility] Stop: 12/20/18 12:14 Last Admin: 11/20/18 21:17 Dose: 100 mg Documented by: Levothyroxine Sodium (Synthroid) 75 mcg PO DAILYBB [facility] Stop: 12/20/18 06:29 Last Admin: 11/21/18 06:03 Dose: 75 mcg Documented by: Prenat Multivit/[place]/Iron/Folic Ac ( Vitamin) 1 tab PO DAILY@08 [facility] Stop: 12/19/18 07:59 Last Admin: 11/20/18 08:28 Dose: 1 tab Documented by: <Elma Swanson DO - Last Filed: 11/21/18 07:54> Co-Signing Physician Notes Resident Physician Supervision Note: I interviewed and examined the patient. Discussed with Dr. Zaldivar and agree with findings and plan as documented in the note. Any exceptions or clarifications are listed here: PPD#2 doing well. Rx Labetalol 100mg BID sent to pharmacy. Followup in office in 1 week for BP check. Reviewed discharge instructions and s/s to watch for preeclampsia. Documented By: Elma Swanson DO Resident Activity Tracking <Chidi Zaldivar MD - Last Filed: 11/21/18 07:52> Resident Involvement: Resident Care Provided Care Provided: Adult Hospital Medicine
[2018-11-21] MEDS: LABETALOL HCL 100 MG TAB PO SCH (08:41)
[2018-11-21] MEDS: PRENATAL VITAMIN 1 TAB PO SCH (08:42)
[2018-11-21] MEDS: DOCUSATE SODIUM 100 MG CAP PO SCH (08:42)
[2018-11-21] MEDS: IBUPROFEN 600 MG TAB PO PRN ×2 (08:42→18:38)
== END 2018-11-21 20:40 | disposition home or self-care (01) | DRG 807 ==
LOC: OPB 12:27 → 4S1 12:30 → 4S2 11-20 02:25
DX: O14.14 Severe pre-eclampsia complicating childbirth; E03.9 Hypothyroidism, unspecified; O70.1 Second degree perineal laceration during delivery; O70.0 First degree perineal laceration during delivery; Z80.3 Family history of malignant neoplasm of breast; O99.284 Endocrine, nutritional and metabolic diseases complicating childbirth; Z3A.36 36 weeks gestation of pregnancy; Z37.0 Single live birth